=== PATIENT | male | born 1990 | race Two or more races ===

== ENCOUNTER 2022-08-16 14:02 | Emergency (ER) | payer OTHER ==
[~2022-08-16] VITALS: Ht 162.6 cm; Wt 88.0 kg
[2022-08-16 15:47] VITALS: BP 126/72
[2022-08-16] MEDS ORDERED: cefTRIAXone SOD 1,000 MG VL IM ONE (16:00)
[2022-08-16] MEDS ORDERED: LIDOCAINE 1% HCL (LOCAL ANESTH.) INJ 20ML MDV ID ONE (16:00)
[2022-08-16] MEDS ORDERED: IBUPROFEN 600 MG TAB PO ONE (16:00)
[2022-08-16] MEDS ORDERED: TETANUS-DIPTH-ACEL PERTUSSIS 0.5ML SYR Tdap IM ONE (16:00)
[2022-08-16] MEDS ORDERED: IBUP600T28 PO (16:51)
[2022-08-16] MEDS ORDERED: CEPH-510 PO (16:51)
== END 2022-08-16 17:49 | disposition home or self-care (01) ==
LOC: ER 14:02
DX: S60.352A Superficial foreign body of left thumb, initial encounter (principal); W45.8XXA Other foreign body or object entering through skin, initial encounter; Y93.89 Activity, other specified; Y92.89 Other specified places as the place of occurrence of the external cause; Y99.8 Other external cause status
CPT/HCPCS: 73130; 90471; 90715; 96372; 99284; J0696; J2001